=== PATIENT | male | born 1940 | race Caucasian/White ===

== ENCOUNTER 2017-06-24 09:17 | Emergency (ER) | payer MEDICARE ==
[~2017-06-24] VITALS: Ht 185.4 cm; Wt 125.0 kg
[~2017-06-24 09:17] MED LIST: ADULT ASPIRIN L81 MG PO; ALLOPURINOL300 MG OR; ALLOPURINOL300 MG PO; AMITIZA24 MC1 PO; ANAPROX275 MG OR; ASA LO-DOSE81 MG PO; ASPIRIN81 MG PO; ATORVASTATIN CA40 MG PO; AUGMENTIN875TAB PO; AVANDIA4 MG OR; AVODART0.5 MG OR; BOOSTRIX IM; BUMETANIDE1 MG PO; BUMETANIDE2 MG PO; BUMEX1 MG PO; BUMEX2 MG OR; CARDIZEM CD240 MG OR; CEPHALEXIN500 MG PO; CLONAZEP ODT0.5 MG OR; CLOPIDOGREL75 MG PO; COLCHICINE0.6 MG OR; COMPAZINE10 MG OR; CRESTOR10 MG; CRESTOR10 MG PO; CRESTOR20 MG PO; DESYREL50 MG OR; DESYREL50 MG PO; DIABETA5 MG PO; DIFLUCAN150 MG PO; DIPYRIDAMOLE50 MG PO; ECONAZOLE1 % EX; FISH OIL1000 MG PO; FLUCONAZOLE100 MG PO; FLUTICASONE50 MCG; FLUZONE SPLT1 M1 IM; GLIPIZIDE ER10 M1 PO; GLIPIZIDE10 M2 OR; GLIPIZIDE10 M2 PO; GLIPIZIDE10 MG PO; JANUVIA50 MG PO; K-DUR/KLOR-CON10 MEQ PO; KEFLEX250 MG PO; LASIX40 MG PO; LASIX80 MG OR; LISINOPRIL10 MG OR; LISINOPRIL10 MG PO; LISINOPRIL20 MG PO; LISINOPRIL5 MG PO; LOPID600 MG OR; LORTAB 10 OR; LUPRON2 WEE1 IJ; MELOXICAM15 MG PO; METFORMIN1000 MG OR; METFORMIN1000 MG PO; METFORMIN500 MG PO; MICRO-K10 MEQ PO; MOBIC7.5 MG PO; MUCINEX600 MG OR; MULTIVITAMIN PO; NABUMETONE750 MG PO; NITROGLYCER0.4 MG SL; OMEPRAZOLE20 MG OR; ONGLYZA2.5 MG PO; PERCOCET 5/321 COMBO PO; PERSANTINE50 MG OR; PLAVIX75 MG OR; POT CHLORIDE10 MEQ OR; POT CHLORIDE20 ME2 OR; PREVACID30 M2 PO; SIMVASTATIN40 MG OR; SIMVASTATIN80 MG PO; SOMA350 MG OR; SOMA350 MG PO; TENORMIN OR; TRAMADOL HCL50 MG PO; TRAZODONE50 MG PO; TYLENOL # 31 TA1 PO; VENLAFAXINE75 M2 PO; VITAMIN B-121000 MCG OR; VITAMIN D-31000 UNIT PO; VITAMIN E1000 UNIT PO; ZOSTAVAX SC; [UNRECOGNIZED DRUG - OTHER] PO; [UNRECOGNIZED DRUG - OTHER] PO
[2017-06-24 09:55] VITALS: BP 131/79
== END 2017-06-24 09:56 | disposition home or self-care (01) ==
LOC: ED 09:17
DX: M72.2 Plantar fascial fibromatosis (principal); I50.9 Heart failure, unspecified; E11.9 Type 2 diabetes mellitus without complications; Z85.46 Personal history of malignant neoplasm of prostate; Z95.5 Presence of coronary angioplasty implant and graft

== ENCOUNTER 2018-02-25 21:31 | Observation (INO) | payer MEDICARE ==
[~2018-02-25] VITALS: Ht 185.4 cm; Wt 119.3 kg
[2018-02-25 22:28] LABS: HEMATOCRIT 35.8 % (39.0-50.0); HEMOGLOBIN 12.7 g/dl (14.0-18.0); IMMATURE GRANULOCYTES 0.4 % (0.0-5.0); MEAN CELL VOLUME 92.7 fL CALC (80.0-100.0); MEAN CORPUSCULAR HGB 32.9 pG CALC (26.0-32.0); MEAN CORPUSCULAR HGB CONC 35.5 g/L CALC (32.0-36.0); NEUT# 9.37 thou/uL (1.82-7.42); RED BLOOD COUNT 3.86 mill/uL (4.70-6.10); RED CELL DISTRI WIDTH 12.7 % (11.5-15.5)
[2018-02-25] MEDS ORDERED: TAMSULOSIN HCL0.4 MG PO (22:38)
[2018-02-25] MEDS ORDERED: ALLOPURINOL100 MG PO (22:38)
[2018-02-25] MEDS ORDERED: LISINOPRIL10 MG PO (22:38)
[2018-02-25] MEDS ORDERED: LIPITOR80 M1 PO (22:39)
[2018-02-25 22:44] LABS: ALBUMIN 3.8 g/dL (3.2-5.0); BILIRUBIN, TOTAL 0.5 mg/dL (0.0-1.4); CREATININE 1.4 mg/dL (0.7-1.3); POTASSIUM 4.2 mmol/l (3.5-5.1); TOTAL PROTEIN 6.5 g/dL (6.3-8.2)
[2018-02-25 22:51] LABS: INTERNATIONAL NORMALIZED RATIO 1.1 RATIO (0.7-1.3); PROTHROMBIN TIME 11.9 SECONDS (9.0-12.5)
[2018-02-25 23:41] LABS: URINE BILIRUBIN - DIPSTICK NEGATIVE (NEGATIVE); URINE BLOOD DIPSTICK NEGATIVE (NEGATIVE); URINE COLOR YELLOW; URINE GLUCOSE - DIPSTICK NEGATIVE (NEGATIVE); URINE KETONE TRACE mg/dL (NEGATIVE); URINE LEUK ESTERASE NEGATIVE (NEGATIVE); URINE NITRITE - DIPSTICK NEGATIVE (Negative); URINE PH 5.5 (4.5-8.0); URINE PROTEIN - DIPSTICK NEGATIVE (NEG-TRACE); URINE SPECIFIC GRAVITY 1.025; URINE UROBILINOGEN - DIPSTICK 0.2 E.U./dL (0.2)
[2018-02-25 23:42] LABS: URINE CLARITY CLEAR
[2018-02-26] VITALS (8 sets, daily range): BP systolic 93–132; BP diastolic 41–75
[2018-02-27 00:25] VITALS: BP 104/63
[2018-02-27 05:00] VITALS: BP 113/67
[2018-02-27 07:56] VITALS: BP 114/72
[2018-02-27 10:14] LABS: ANION GAP 13 (6-22 (CALC)); BUN 16 mg/dL (8-23); BUN/CREATININE RATIO 15 (12-20 (CALC)); CARBON DIOXIDE 23 mmol/l (22-30); CHLORIDE 106 mmol/l (95-108); CREATININE 1.1 mg/dL (0.7-1.3); GFR > 60 ML/MIN (>=60 (CALC)); GFR FOR AFR.AMER. > 60 ML/MIN (>=60 (CALC)); POTASSIUM 4.4 mmol/l (3.5-5.1); SODIUM 138 mmol/l (137-146)
[2018-02-27] MEDS ORDERED: BUMETANIDE2 MG IN (11:35)
[2018-02-27 12:30] VITALS: BP 102/67
[2018-02-28] MEDS ORDERED: TRAZODONE100 MG PO (16:10)
== END 2018-02-27 13:35 | disposition home health service (06) ==
LOC: ED 21:31 → ED-I 02-26 03:10 → ED 02-26 03:39 → MS2 02-26 03:40
PROVIDERS: Emergency Medicine; ADMIT Internal Medicine; ATTEND Internal Medicine
DX: R26.89 Other abnormalities of gait and mobility (principal); N17.9 Acute kidney failure, unspecified; S00.81XA Abrasion of other part of head, initial encounter; E86.0 Dehydration; I10 Essential (primary) hypertension; E11.9 Type 2 diabetes mellitus without complications; I25.10 Atherosclerotic heart disease of native coronary artery without angina pectoris; M25.552 Pain in left hip; W01.0XXA Fall on same level from slipping, tripping and stumbling without subsequent striking against object, initial encounter; Y92.239 Unspecified place in hospital as the place of occurrence of the external cause; Y99.2 Volunteer activity; Z95.5 Presence of coronary angioplasty implant and graft; Z85.46 Personal history of malignant neoplasm of prostate; Z92.21 Personal history of antineoplastic chemotherapy; Z87.891 Personal history of nicotine dependence; Z79.84 Long term (current) use of oral hypoglycemic drugs

== ENCOUNTER 2018-02-28 14:54 | Emergency (ER) | payer MEDICARE ==
[~2018-02-28] VITALS: Ht 185.4 cm; Wt 135.0 kg
[~2018-02-28 14:54] MED LIST changes: +ALLOPURINOL100 MG PO; +BUMETANIDE2 MG IN; +LIPITOR80 M1 PO; +TAMSULOSIN HCL0.4 MG PO
[2018-02-28 15:31] LABS: HEMATOCRIT 34.3 % (39.0-50.0); HEMOGLOBIN 11.9 g/dl (14.0-18.0); IMMATURE GRANULOCYTES 0.3 % (0.0-5.0); MEAN CELL VOLUME 94.2 fL CALC (80.0-100.0); MEAN CORPUSCULAR HGB 32.7 pG CALC (26.0-32.0); MEAN CORPUSCULAR HGB CONC 34.7 g/L CALC (32.0-36.0); NEUT# 4.04 thou/uL (1.82-7.42); RED BLOOD COUNT 3.64 mill/uL (4.70-6.10); RED CELL DISTRI WIDTH 12.6 % (11.5-15.5)
[2018-02-28 15:48] LABS: ANION GAP 12 (6-22 (CALC)); BUN 16 mg/dL (8-23); BUN/CREATININE RATIO 15 (12-20 (CALC)); CARBON DIOXIDE 29 mmol/l (22-30); CHLORIDE 102 mmol/l (95-108); CREATININE 1.1 mg/dL (0.7-1.3); GFR > 60 ML/MIN (>=60 (CALC)); GFR FOR AFR.AMER. > 60 ML/MIN (>=60 (CALC)); POTASSIUM 4.1 mmol/l (3.5-5.1); SODIUM 139 mmol/l (137-146)
[2018-02-28] MEDS ORDERED: TRAZODONE100 MG PO (16:10)
[2018-02-28 17:47] VITALS: BP 119/61
== END 2018-02-28 17:33 | disposition short-term general hospital (02) ==
LOC: ED 14:54
PROVIDERS: Family Medicine
DX: I63.9 Cerebral infarction, unspecified (principal); R47.81 Slurred speech; S00.12XA Contusion of left eyelid and periocular area, initial encounter; M25.552 Pain in left hip; E11.9 Type 2 diabetes mellitus without complications; I10 Essential (primary) hypertension; I25.10 Atherosclerotic heart disease of native coronary artery without angina pectoris; E78.5 Hyperlipidemia, unspecified; I73.9 Peripheral vascular disease, unspecified; W19.XXXA Unspecified fall, initial encounter; Y92.149 Unspecified place in prison as the place of occurrence of the external cause; Y99.0 Civilian activity done for income or pay; Z85.46 Personal history of malignant neoplasm of prostate

== ENCOUNTER 2019-05-23 10:53 | Inpatient (IN) | payer MEDICARE ==
[~2019-05-23] VITALS: Ht 185.4 cm; Wt 127.5 kg
[~2019-05-23 10:53] MED LIST changes: +TRAZODONE100 MG PO; -VITAMIN E1000 UNIT PO; +VITAMIN E400 UNIT PO; +XARELTO10 MG PO; +XARELTO20 MG PO
[2019-05-23] MEDS ORDERED: ALOGLIPTIN25 MG PO (11:12)
[2019-05-23] MEDS ORDERED: ATENOLOL25 MG PO (11:13)
[2019-05-23] MEDS ORDERED: BUMEX1 M1 PO (11:14)
[2019-05-23] MEDS ORDERED: LORATADINE10 M3 PO (11:16)
[2019-05-23] MEDS ORDERED: LOSARTAN POTASS25 MG PO (11:16)
[2019-05-23] MEDS ORDERED: COUMADIN5 MG PO (11:17)
[2019-05-23] MEDS ORDERED: TRAZODONE50 MG PO (11:22)
[2019-05-23] MEDS ORDERED: STOOL SOFTENER100 MG PO (11:29)
[2019-05-23] MEDS ORDERED: GABAPENTIN300 M2 PO (11:29)
[2019-05-23 11:30] LABS: HEMATOCRIT 37.2 % (39.0-50.0); HEMOGLOBIN 12.7 g/dl (14.0-18.0); IMMATURE GRANULOCYTES 0.3 % (0.0-5.0); MEAN CELL VOLUME 94.4 fL CALC (80.0-100.0); MEAN CORPUSCULAR HGB 32.2 pG CALC (26.0-32.0); MEAN CORPUSCULAR HGB CONC 34.1 g/L CALC (32.0-36.0); NEUT# 8.81 thou/uL (1.82-7.42); RED BLOOD COUNT 3.94 mill/uL (4.70-6.10); RED CELL DISTRI WIDTH 12.6 % (11.5-15.5)
[2019-05-23 11:47] LABS: ALBUMIN 3.2 g/dL (3.2-5.0); ALKALINE PHOSPHATASE 68 u/l (38-126); ANION GAP 11 (6-22 (CALC)); BUN 27 mg/dL (8-23); BUN/CREATININE RATIO 17 (12-20 (CALC)); CARBON DIOXIDE 22 mmol/l (22-30); CHLORIDE 110 mmol/l (95-108); CREATININE 1.6 mg/dL (0.7-1.3); GFR 42 ML/MIN (>=60 (CALC)); GFR FOR AFR.AMER. 51 ML/MIN (>=60 (CALC)); POTASSIUM 4.4 mmol/l (3.5-5.1); SGOT/AST 18 u/l (19-48); SODIUM 139 mmol/l (137-146); TOTAL PROTEIN 6.1 g/dL (6.3-8.2)
[2019-05-23 11:48] LABS: BILIRUBIN, TOTAL 0.3 mg/dL (0.0-1.4)
[2019-05-23 11:51] LABS: PROTHROMBIN TIME 17.7 SECONDS (9.0-12.5)
[2019-05-23 11:52] LABS: INTERNATIONAL NORMALIZED RATIO 1.7 RATIO (0.7-1.3)
[2019-05-23 12:18] LABS: TSH, 3RD GENERATION 1.33 uIU/mL (0.47 - 4.68)
[2019-05-23 13:50] LABS: URINE BILIRUBIN - DIPSTICK NEGATIVE (NEGATIVE); URINE BLOOD DIPSTICK NEGATIVE (NEGATIVE); URINE COLOR YELLOW; URINE GLUCOSE - DIPSTICK NEGATIVE (NEGATIVE); URINE KETONE NEGATIVE (NEGATIVE); URINE LEUK ESTERASE NEGATIVE (NEGATIVE); URINE NITRITE - DIPSTICK NEGATIVE (Negative); URINE PH 5.5 (4.5-8.0); URINE PROTEIN - DIPSTICK NEGATIVE (NEG-TRACE); URINE SPECIFIC GRAVITY 1.025; URINE UROBILINOGEN - DIPSTICK 0.2 E.U./dL (0.2)
[2019-05-23] MEDS ORDERED: WARFARIN7.5 MG PO (16:16)
[2019-05-23 16:18] VITALS: BP 117/68
[2019-05-23 19:11] VITALS: BP 102/65
[2019-05-23 23:59] VITALS: BP 107/54
[2019-05-24] VITALS (10 sets, daily range): BP systolic 87–124; BP diastolic 51–73
[2019-05-24 09:09] LABS: PROTHROMBIN TIME 20.4 SECONDS (9.0-12.5)
[2019-05-24 13:32] LABS: HEMATOCRIT 35.4 % (39.0-50.0); HEMOGLOBIN 11.6 g/dl (14.0-18.0); IMMATURE GRANULOCYTES 0.2 % (0.0-5.0); MEAN CELL VOLUME 96.5 fL CALC (80.0-100.0); MEAN CORPUSCULAR HGB 31.6 pG CALC (26.0-32.0); MEAN CORPUSCULAR HGB CONC 32.8 g/L CALC (32.0-36.0); NEUT# 3.71 thou/uL (1.82-7.42); RED BLOOD COUNT 3.67 mill/uL (4.70-6.10); RED CELL DISTRI WIDTH 12.7 % (11.5-15.5)
[2019-05-24 13:34] LABS: ANION GAP 9 (6-22 (CALC)); BUN 21 mg/dL (8-23); BUN/CREATININE RATIO 18 (12-20 (CALC)); CARBON DIOXIDE 22 mmol/l (22-30); CHLORIDE 111 mmol/l (95-108); CREATININE 1.2 mg/dL (0.7-1.3); GFR 59 ML/MIN (>=60 (CALC)); GFR FOR AFR.AMER. > 60 ML/MIN (>=60 (CALC)); MAGNESIUM 1.9 mg/dL (1.6-2.3); POTASSIUM 4.1 mmol/l (3.5-5.1); SODIUM 137 mmol/l (137-146)
[2019-05-25] VITALS (7 sets, daily range): BP systolic 106–121; BP diastolic 49–70
[2019-05-25 04:53] LABS: HEMATOCRIT 33.4 % (39.0-50.0); HEMOGLOBIN 11.2 g/dl (14.0-18.0); IMMATURE GRANULOCYTES 0.2 % (0.0-5.0); MEAN CELL VOLUME 95.2 fL CALC (80.0-100.0); MEAN CORPUSCULAR HGB 31.9 pG CALC (26.0-32.0); MEAN CORPUSCULAR HGB CONC 33.5 g/L CALC (32.0-36.0); NEUT# 3.53 thou/uL (1.82-7.42); RED BLOOD COUNT 3.51 mill/uL (4.70-6.10); RED CELL DISTRI WIDTH 12.5 % (11.5-15.5)
[2019-05-25 05:34] LABS: INTERNATIONAL NORMALIZED RATIO 1.9 RATIO (0.7-1.3)
[2019-05-25 05:37] LABS: ANION GAP 8 (6-22 (CALC)); BUN 21 mg/dL (8-23); BUN/CREATININE RATIO 17 (12-20 (CALC)); CARBON DIOXIDE 23 mmol/l (22-30); CHLORIDE 111 mmol/l (95-108); CREATININE 1.2 mg/dL (0.7-1.3); GFR 59 ML/MIN (>=60 (CALC)); GFR FOR AFR.AMER. > 60 ML/MIN (>=60 (CALC)); MAGNESIUM 1.8 mg/dL (1.6-2.3); POTASSIUM 3.8 mmol/l (3.5-5.1); SODIUM 138 mmol/l (137-146)
[2019-05-26] VITALS (9 sets, daily range): BP systolic 110–134; BP diastolic 57–69
[2019-05-26 05:16] LABS: HEMATOCRIT 35.5 % (39.0-50.0); HEMOGLOBIN 11.9 g/dl (14.0-18.0); IMMATURE GRANULOCYTES 0.2 % (0.0-5.0); MEAN CELL VOLUME 94.7 fL CALC (80.0-100.0); MEAN CORPUSCULAR HGB 31.7 pG CALC (26.0-32.0); MEAN CORPUSCULAR HGB CONC 33.5 g/L CALC (32.0-36.0); NEUT# 3.22 thou/uL (1.82-7.42); RED BLOOD COUNT 3.75 mill/uL (4.70-6.10); RED CELL DISTRI WIDTH 12.3 % (11.5-15.5)
[2019-05-26 05:37] LABS: INTERNATIONAL NORMALIZED RATIO 1.5 RATIO (0.7-1.3)
[2019-05-26 05:47] LABS: ANION GAP 10 (6-22 (CALC)); BUN 17 mg/dL (8-23); BUN/CREATININE RATIO 15 (12-20 (CALC)); CARBON DIOXIDE 23 mmol/l (22-30); CHLORIDE 111 mmol/l (95-108); CREATININE 1.2 mg/dL (0.7-1.3); GFR 59 ML/MIN (>=60 (CALC)); GFR FOR AFR.AMER. > 60 ML/MIN (>=60 (CALC)); MAGNESIUM 1.8 mg/dL (1.6-2.3); POTASSIUM 4.2 mmol/l (3.5-5.1); SODIUM 140 mmol/l (137-146)
== END 2019-05-26 16:16 | disposition home health service (06) | DRG 312 ==
LOC: ED 10:53 → ED-I 12:06 → ED 12:06 → ED-I 13:47 → ED 14:04 → MS2 14:05
PROVIDERS: Family Medicine; Nurse Practitioner Family; ADMIT Internal Medicine; ATTEND Internal Medicine
DX: I95.1 Orthostatic hypotension (principal); I13.0 Hypertensive heart and chronic kidney disease with heart failure and stage 1 through stage 4 chronic kidney disease, or unspecified chronic kidney disease; N17.9 Acute kidney failure, unspecified; I48.20 Chronic atrial fibrillation, unspecified; R62.7 Adult failure to thrive; Z68.36 Body mass index [BMI] 36.0-36.9, adult; E86.0 Dehydration; E11.22 Type 2 diabetes mellitus with diabetic chronic kidney disease; N18.2 Chronic kidney disease, stage 2 (mild); I50.9 Heart failure, unspecified; E11.51 Type 2 diabetes mellitus with diabetic peripheral angiopathy without gangrene; I25.10 Atherosclerotic heart disease of native coronary artery without angina pectoris; E78.5 Hyperlipidemia, unspecified; G47.33 Obstructive sleep apnea (adult) (pediatric); Z91.19 Patient's noncompliance with other medical treatment and regimen; J61 Pneumoconiosis due to asbestos and other mineral fibers; M10.9 Gout, unspecified; N40.0 Benign prostatic hyperplasia without lower urinary tract symptoms; Z91.81 History of falling; Z85.46 Personal history of malignant neoplasm of prostate; Z79.01 Long term (current) use of anticoagulants; Z95.5 Presence of coronary angioplasty implant and graft; Z87.891 Personal history of nicotine dependence; Z63.8 Other specified problems related to primary support group
CPT/HCPCS: G0378

== ENCOUNTER 2019-11-27 16:14 | Inpatient (IN) | payer MEDICARE ==
[~2019-11-27 16:14] MED LIST changes: +ALOGLIPTIN25 MG PO; +ATENOLOL25 MG PO; +BUMEX1 M1 PO; +COUMADIN5 MG PO; +GABAPENTIN300 M2 PO; +LORATADINE10 M3 PO; +LOSARTAN POTASS25 MG PO; +STOOL SOFTENER100 MG PO; +WARFARIN7.5 MG PO
--- NOTE | 2019-11-27 16:50 | NUR ---
PT ARRIVED TO MED/SURG ROOM 262 IN STABLE CONDITION VIA WHEELCHAIR ACCOMPANIED BY REGISTRATION;PT AMBULATED WITH A STEADY GAIT TO STANDING SCALE AND BEDSIDE,WT AND VS OBTAINED BY JANIE LOPEZ;PT A&O X3,ORIENTED TO ROOM AND CALL LIGHT SYSTEM;PT REPORTS INCREASED "SWELLING" FOR THE PAST FEW WEEKS AND SENT TO [facility] [place] FROM PCP DIRECT ADMIT;PT DENIES ANY CURRENT PAIN OR DISCOMFORTS,PAIN SCALE AND REPORTING EDUCATED;RESPIRATIONS EVEN AND UNLABORED ON RA,DIMINISHED LUNG SOUNDS;PT DENIES COUGH;ABDOMEN DISTENDED/SOFT ON PALPATION AND ACTIVE IN ALL 4 QUADRANTS,LAST BM 11/27/19;STRONG PEDAL PULSES WITH +1 BLE EDEMA NOTED,PT ENCOURAGED TO ELEVATE BLE;SKIN INTACT;TELE MONITORING IN PLACE;FALL AND ALLERGY BAND APPLIED;ACCUCHECK OBTAINED RESULTING IN 181;#22G STARTED TO RFA ON 1ST ATTEMPT BY THIS WRITTER AND PT TOLERATED WELL;PT DENIES ANY ADDITIONAL NEEDS AT THIS TIME;ENCOURAGED TO CALL FOR ASSISTANCE IF NEEDED;FALL PRECAUTIONS IN PLACE WITH BED IN THE LOWEST POSITION AND CALL LIGHT IN REACH;WILL CONTINUE TO MONITOR
[2019-11-27 17:08] VITALS: BP 109/62
--- NOTE | 2019-11-27 17:34 | NUR ---
XRAY AT BEDSIDE
--- NOTE | 2019-11-27 17:46 | NUR ---
RT AT BEDSIDE OBTAINING EKG.
[2019-11-27 17:55] LABS: HEMATOCRIT 36.2 % (39.0-50.0); HEMOGLOBIN 12.3 g/dl (14.0-18.0); IMMATURE GRANULOCYTES 0.3 % (0.0-5.0); MEAN CELL VOLUME 92.8 fL CALC (80.0-100.0); MEAN CORPUSCULAR HGB 31.5 pG CALC (26.0-32.0); NEUT# 5.01 thou/uL (1.82-7.42); RED BLOOD COUNT 3.9 mill/uL (4.70-6.10)
[2019-11-27 18:19] LABS: INTERNATIONAL NORMALIZED RATIO 2.5 RATIO (0.7-1.3); PROTHROMBIN TIME 24.7 SECONDS (9.0-12.5)
[2019-11-27 18:22] LABS: ALBUMIN 3.3 g/dL (3.2-5.0); BILIRUBIN, TOTAL 0.3 mg/dL (0.0-1.4); CREATININE 1.7 mg/dL (0.7-1.3); MAGNESIUM 1.9 mg/dL (1.6-2.3); POTASSIUM 4.5 mmol/l (3.5-5.1); TOTAL PROTEIN 6.1 g/dL (6.3-8.2)
[2019-11-27 18:50] VITALS: BP 116/67
--- NOTE | 2019-11-27 19:30 | NUR ---
PT RESTING IN BED, NO SIGNS OF DISTRESS NOTED, RESP EVEN AND UNLABORED. PT ALERT AND ORIENTED X3. DISCUSSED POC, PT VOICES NO NEEDS OR COMPLAINTS AT THIS TIME. ASSESSMENT COMPLETED, CALL LIGHT IN REACH,CONTINUE TO MONITOR.
[2019-11-27 20:29] LABS: URINE BILIRUBIN - DIPSTICK NEGATIVE (NEGATIVE); URINE BLOOD DIPSTICK NEGATIVE (NEGATIVE); URINE CLARITY CLEAR; URINE COLOR YELLOW; URINE GLUCOSE - DIPSTICK NEGATIVE (NEGATIVE); URINE KETONE NEGATIVE (NEGATIVE); URINE LEUK ESTERASE NEGATIVE (Negative); URINE NITRITE - DIPSTICK NEGATIVE (Negative); URINE PH 5.5 (4.5-8.0); URINE PROTEIN - DIPSTICK NEGATIVE (NEG-TRACE); URINE SPECIFIC GRAVITY 1.025; URINE UROBILINOGEN - DIPSTICK 0.2 E.U./dL (0.2)
--- NOTE | 2019-11-27 21:16 | NUR ---
PT RESTING IN BED, NO SIGNS OF DISTRESS NOTED, RESP EVEN AND UNLABORED. PT MEDICATED PER SEP. PT GIVEN SNACK, CALL LIGHT IN REACH,CONTINUE TO MONITOR.
[2019-11-27 23:35] VITALS: BP 100/51
--- NOTE | 2019-11-28 | NUR ---
PT RESTING IN BED, NO SIGNS OF DISTRESS NOTED, RESP EVEN AND UNLABORED. ACCUCHECK OBTAINED PER REQUEST. 198 AT THIS TIME.CALL LIGHT IN REACH,CONTINUE TO MONITOR.
--- NOTE | 2019-11-28 04:01 | NUR ---
PT RESTING IN BED, NO SIGNS OF DISTRESS NOTED, RESP EVEN AND UNLABORED. CALL LIGHT IN REACH,CONTINUE TO MONITOR.
[2019-11-28 05:51] LABS: ALBUMIN 3.1 g/dL (3.2-5.0); BILIRUBIN, TOTAL 0.4 mg/dL (0.0-1.4); CREATININE 1.7 mg/dL (0.7-1.3); POTASSIUM 4.4 mmol/l (3.5-5.1); TOTAL PROTEIN 5.8 g/dL (6.3-8.2)
[2019-11-28 07:25] LABS: INTERNATIONAL NORMALIZED RATIO 2.6 RATIO (0.7-1.3); PROTHROMBIN TIME 26.1 SECONDS (9.0-12.5)
[2019-11-28 08:10] VITALS: BP 120/58
--- NOTE | 2019-11-28 08:10 | NUR ---
ASSESSMENT IS COMPLETED: IV SITE IS FREE FROM REDNESS OR EDEMA. HR IS REG,PULSES ARE STRONG X4, ABD IS SOFT WITH ACTIVE BS, BREATH SOUNDS ARE CLEAR BILATERALLY. CONTINUE TO OSBERVE AND MONITOR.
[2019-11-28 10:55] VITALS: BP 92/52
--- NOTE | 2019-11-28 11:07 | NUR ---
family sent papers for pt. (confidential)
--- NOTE | 2019-11-28 12:15 | NUR ---
PT IS RELAXING IN BED WITH NO DISTRESS NOTED. IV SITE IS FREE FROM REDNESS OR EDEMA.
--- NOTE | 2019-11-28 13:42 | NUR ---
SPOKE WITH SPOUSE RE: PT. INQUIRED HOW HE WAS DOING TODAY,
[2019-11-28 15:30] VITALS: BP 110/64
--- NOTE | 2019-11-28 16:15 | NUR ---
PT IS RELAXING IN BED WITH NO DISTRESS NOTED. CONTINUE TO OSBERVE AND MONITOR.
[2019-11-28 18:30] VITALS: BP 107/65
--- NOTE | 2019-11-28 20:50 | NUR ---
PT MEDICATED ORDERS PROVIDE. ASSESSMENT COMPLETED AT THIS TIME. 2+EDEMA BLE. DENIES ANY OTHER NEEDS AT THIS TIME. CALL LIGHT AT BEDSIDE.
[2019-11-28 23:55] VITALS: BP 107/66
--- NOTE | 2019-11-29 01:40 | NUR ---
PT SLEEPING AT THIS TIME, NO S/O DISTRESS NOTED. CALL LIGHT AT SIDE.
[2019-11-29 03:35] VITALS: BP 105/60
--- NOTE | 2019-11-29 03:57 | NUR ---
pt sleeping, no s/o distress at this time.
--- NOTE | 2019-11-29 05:12 | NUR ---
PT MEDICATED W/BUMEX ORDERS PROVIDE. PT DENIES ANY NEEDS. EDEMA TO BLE 2+PITTING EDEMA.
--- NOTE | 2019-11-29 05:30 | NUR ---
REPORT RECEIVED FROM JASPER. CARE ASSUMED.
[2019-11-29 06:20] VITALS: BP 106/72
--- NOTE | 2019-11-29 06:20 | NUR ---
PT RESTING IN BED AWAKE. PT IS ALERT AND ORIENTED X3. SHIFT ASSESSMENT COMPLETED AT THIS TIME. IV PATENT X1. CALL LIGHT IN REACH. WILL CONTINUE TO MONITOR.
[2019-11-29 06:25] LABS: PROTHROMBIN TIME 20.7 SECONDS (9.0-12.5)
[2019-11-29 06:40] LABS: CREATININE 1.6 mg/dL (0.7-1.3); POTASSIUM 4.3 mmol/l (3.5-5.1)
--- NOTE | 2019-11-29 10:00 | NUR ---
DR JEFFERSON AT BEDSIDE
[2019-11-29 10:36] VITALS: BP 105/68
--- NOTE | 2019-11-29 10:45 | NUR ---
IV site discontinued, cath intact. No edema , no redness, voices no discomfort.
--- NOTE | 2019-11-29 11:30 | NUR ---
DISCHARGE INSTRUCTIONS REVIEWED WITH PATIENT. PATIENT VERBALIZED UNDERSTANDING.
--- NOTE | 2019-11-29 11:35 | NUR ---
Discharge instructions given. Patient verbalizes understanding of same. Discharged in stable condition via Wheelchair to Home with family. All belongings sent with pt.
== END 2019-11-29 11:36 | DRG 291 ==
LOC: MS2 16:14
PROVIDERS: ADMIT Internal Medicine; ATTEND Internal Medicine
DX: I13.0 Hypertensive heart and chronic kidney disease with heart failure and stage 1 through stage 4 chronic kidney disease, or unspecified chronic kidney disease (principal); I50.33 Acute on chronic diastolic (congestive) heart failure; I48.20 Chronic atrial fibrillation, unspecified; E11.22 Type 2 diabetes mellitus with diabetic chronic kidney disease; N18.9 Chronic kidney disease, unspecified; I25.10 Atherosclerotic heart disease of native coronary artery without angina pectoris; E11.51 Type 2 diabetes mellitus with diabetic peripheral angiopathy without gangrene; G47.33 Obstructive sleep apnea (adult) (pediatric); M10.9 Gout, unspecified; Z79.01 Long term (current) use of anticoagulants; Z95.5 Presence of coronary angioplasty implant and graft; Z87.891 Personal history of nicotine dependence; Z85.46 Personal history of malignant neoplasm of prostate; Z79.02 Long term (current) use of antithrombotics/antiplatelets; Z79.84 Long term (current) use of oral hypoglycemic drugs; Z20.828 Contact with and (suspected) exposure to other viral communicable diseases

== ENCOUNTER 2019-12-02 08:31 | Observation (INO) | payer MEDICARE ==
[~2019-12-02] VITALS: Ht 185.4 cm; Wt 134.0 kg
[2019-12-02 09:20] LABS: HEMATOCRIT 36.6 % (39.0-50.0); HEMOGLOBIN 12.3 g/dl (14.0-18.0); IMMATURE GRANULOCYTES 0.4 % (0.0-5.0); MEAN CORPUSCULAR HGB 30.9 pG CALC (26.0-32.0); MEAN CORPUSCULAR HGB CONC 33.6 g/dL CAL (32.0-36.0); NEUT# 5.64 thou/uL (1.82-7.42); RED BLOOD COUNT 3.98 mill/uL (4.70-6.10); RED CELL DISTRI WIDTH 12.7 % (11.5-15.5)
[2019-12-02 09:37] LABS: INTERNATIONAL NORMALIZED RATIO 1.9 RATIO (0.7-1.3); PROTHROMBIN TIME 19.7 SECONDS (9.0-12.5)
[2019-12-02 09:47] LABS: ALBUMIN 3.5 g/dL (3.2-5.0); ALKALINE PHOSPHATASE 62 u/l (38-126); ANION GAP 11 (6-22 (CALC)); BILIRUBIN, TOTAL 0.5 mg/dL (0.0-1.4); BUN 28 mg/dL (8-23); BUN/CREATININE RATIO 19 (12-20 (CALC)); CARBON DIOXIDE 26 mmol/l (22-30); CHLORIDE 102 mmol/l (95-108); CREATININE 1.5 mg/dL (0.7-1.3); GFR 45 ML/MIN (>=60 (CALC)); GFR FOR AFR.AMER. 55 ML/MIN (>=60 (CALC)); POTASSIUM 4.7 mmol/l (3.5-5.1); SGOT/AST 16 u/l (19-48); SODIUM 134 mmol/l (137-146); TOTAL PROTEIN 6.4 g/dL (6.3-8.2)
[2019-12-02 14:00] VITALS: BP 120/70
[2019-12-02 15:39] VITALS: BP 104/55
[2019-12-02 19:02] VITALS: BP 115/69
[2019-12-02 23:43] VITALS: BP 98/39
[2019-12-03] VITALS (7 sets, daily range): BP systolic 92–120; BP diastolic 53–64
[2019-12-03 05:10] LABS: HEMATOCRIT 36.2 % (39.0-50.0); HEMOGLOBIN 12.4 g/dl (14.0-18.0); IMMATURE GRANULOCYTES 0.2 % (0.0-5.0); MEAN CELL VOLUME 91.6 fL CALC (80.0-100.0); MEAN CORPUSCULAR HGB 31.4 pG CALC (26.0-32.0); MEAN CORPUSCULAR HGB CONC 34.3 g/dL CAL (32.0-36.0); NEUT# 4.1 thou/uL (1.82-7.42); RED BLOOD COUNT 3.95 mill/uL (4.70-6.10); RED CELL DISTRI WIDTH 12.9 % (11.5-15.5)
[2019-12-03 05:29] LABS: PROTHROMBIN TIME 20.3 SECONDS (9.0-12.5)
[2019-12-03 05:39] LABS: ALBUMIN 3.3 g/dL (3.2-5.0); BILIRUBIN, TOTAL 0.5 mg/dL (0.0-1.4); CREATININE 1.5 mg/dL (0.7-1.3); POTASSIUM 4.2 mmol/l (3.5-5.1); TOTAL PROTEIN 6.1 g/dL (6.3-8.2)
[2019-12-04 04:01] VITALS: BP 90/55
[2019-12-04 05:57] LABS: INTERNATIONAL NORMALIZED RATIO 1.7 RATIO (0.7-1.3); PROTHROMBIN TIME 17.6 SECONDS (9.0-12.5)
[2019-12-04 06:03] LABS: CREATININE 1.4 mg/dL (0.7-1.3)
[2019-12-04 08:10] VITALS: BP 122/71
[2019-12-04 11:19] VITALS: BP 101/66
[2019-12-04] MEDS ORDERED: LORTAB 7.57.5 MG PO (13:14)
== END 2019-12-04 15:00 ==
LOC: ED 08:31 → ED-I 12:00 → ED 12:16 → MS2 12:17 → ED-I 12:17 → MS2 12:48
PROVIDERS: Family Medicine; Nurse Practitioner Family; ADMIT Internal Medicine; ATTEND Internal Medicine
DX: I13.0 Hypertensive heart and chronic kidney disease with heart failure and stage 1 through stage 4 chronic kidney disease, or unspecified chronic kidney disease (principal); I50.9 Heart failure, unspecified; E11.22 Type 2 diabetes mellitus with diabetic chronic kidney disease; N18.3 Chronic kidney disease, stage 3 (moderate); E11.51 Type 2 diabetes mellitus with diabetic peripheral angiopathy without gangrene; I25.119 Atherosclerotic heart disease of native coronary artery with unspecified angina pectoris; J44.9 Chronic obstructive pulmonary disease, unspecified; I48.19 Other persistent atrial fibrillation; E78.5 Hyperlipidemia, unspecified; G47.33 Obstructive sleep apnea (adult) (pediatric); Z79.01 Long term (current) use of anticoagulants; Z95.5 Presence of coronary angioplasty implant and graft; Z20.828 Contact with and (suspected) exposure to other viral communicable diseases
CPT/HCPCS: G0378; Q9967

== ENCOUNTER 2020-03-14 16:04 | Inpatient (IN) | payer MEDICARE ==
[2020-03-10 20:15] VITALS: BP 104/59
[2020-03-14] VITALS (16 sets, daily range): BP systolic 84–173; BP diastolic 51–73
[~2020-03-14] VITALS: Ht 185.4 cm; Wt 141.8 kg
[~2020-03-14 16:04] MED LIST changes: +LORTAB 7.57.5 MG PO
--- NOTE | 2020-03-14 16:04 | NUR ---
PT TO ROOM VIA EMS
--- NOTE | 2020-03-14 16:45 | NUR ---
16 HUNGARIAN AYALA CATH INSERTED USING STERILE TECHNIQUE, 800 ML YELLOW URINE OBTAINED. PT TOLERTAED WITHOUT DIFFICULTY.
[2020-03-14 16:46] LABS: HEMATOCRIT 37.3 % (39.0-50.0); HEMOGLOBIN 12.2 g/dl (14.0-18.0); IMMATURE GRANULOCYTES 0.4 % (0.0-5.0); MEAN CELL VOLUME 94.2 fL CALC (80.0-100.0); MEAN CORPUSCULAR HGB 30.8 pG CALC (26.0-32.0); MEAN CORPUSCULAR HGB CONC 32.7 g/dL CAL (32.0-36.0); NEUT# 7.47 thou/uL (1.82-7.42); RED BLOOD COUNT 3.96 mill/uL (4.70-6.10); RED CELL DISTRI WIDTH 12.4 % (11.5-15.5)
[2020-03-14 16:59] LABS: ACT PARTIAL THROMBO TIME 34.5 SECONDS (20.0-32.5)
[2020-03-14 17:02] LABS: ALBUMIN 3.7 g/dL (3.2-5.0); ALKALINE PHOSPHATASE 58 u/l (38-126); AMYLASE 112 u/l (30-110); ANION GAP 15 (6-22 (CALC)); CARBON DIOXIDE 28 mmol/l (22-30); CHLORIDE 93 mmol/l (95-108); ETHYL ALCOHOL 0 mg/dl (0-30); LIPASE 250 u/l (23-300); MAGNESIUM 1.8 mg/dL (1.6-2.3); POTASSIUM 4.3 mmol/l (3.5-5.1); SGOT/AST 21 u/l (19-48); SODIUM 132 mmol/l (137-146); TOTAL PROTEIN 6.8 g/dL (6.3-8.2)
[2020-03-14 17:03] LABS: INTERNATIONAL NORMALIZED RATIO 3.6 RATIO (0.7-1.3)
[2020-03-14 17:06] LABS: BILIRUBIN, TOTAL 0.2 mg/dL (0.0-1.4); BUN 87 mg/dL (8-23); BUN/CREATININE RATIO 24 (12-20 (CALC)); CREATININE 3.6 mg/dL (0.7-1.3); GFR 16 ML/MIN (>=60 (CALC)); GFR FOR AFR.AMER. 20 ML/MIN (>=60 (CALC))
--- NOTE | 2020-03-14 17:10 | NUR ---
NEOSYNEPHRINE STARTED AT THIS TIME PER STANDING ORDER; PT B/P 83/47; PT IN [place] POSITION; TOLERATING WELL AND IV BOLUS INFUSING; MONITORING DEVICES IN PLACE; WILL CONTINUE TO MONITOR
--- NOTE | 2020-03-14 17:25 | NUR ---
ULTRASOUND AT BEDSIDE.
[2020-03-14] MEDS ORDERED: GLIPIZIDE5 MG PO (17:37)
[2020-03-14] MEDS ORDERED: ASPIRIN81 MG PO (17:37)
[2020-03-14] MEDS ORDERED: XARELTO10 MG PO (17:37)
[2020-03-14] MEDS ORDERED: LISINOPRIL10 MG PO (17:38)
[2020-03-14] MEDS ORDERED: METFORMIN500 M2 PO (17:38)
[2020-03-14] MEDS ORDERED: ONGLYZA5 MG PO (17:39)
[2020-03-14] MEDS ORDERED: TRESIBA100 UNIT/M SC (17:39)
[2020-03-14] MEDS ORDERED: METOLAZONE2.5 MG PO (17:41)
[2020-03-14 17:49] LABS: URINE BILIRUBIN - DIPSTICK NEGATIVE (NEGATIVE); URINE BLOOD DIPSTICK NEGATIVE (NEGATIVE); URINE COLOR YELLOW; URINE GLUCOSE - DIPSTICK NEGATIVE (NEGATIVE); URINE KETONE NEGATIVE (NEGATIVE); URINE LEUK ESTERASE NEGATIVE (NEGATIVE); URINE NITRITE - DIPSTICK NEGATIVE (Negative); URINE PROTEIN - DIPSTICK NEGATIVE (NEG-TRACE); URINE UROBILINOGEN - DIPSTICK 0.2 E.U./dL (0.2)
--- NOTE | 2020-03-14 18:04 | NUR ---
MD AT BEDSIDE TO DISCUSS RESULTS AND POC.
--- NOTE | 2020-03-14 18:23 | NUR ---
COVID SWAB OBTAINED, ISOLATION PRECAUTIONS INITIATED.
--- NOTE | 2020-03-14 19:10 | NUR ---
NURSE TO NURSE REPORT CALLED TO SERVANDO FRANCO.
--- NOTE | 2020-03-14 19:25 | NUR ---
TO RADIOLOGY VIA STRETCHER MONITORS ATTACHED.
--- NOTE | 2020-03-14 19:40 | NUR ---
TO ICU FROM RADIOLOGY VIA STRETCHER.
--- NOTE | 2020-03-14 19:50 | NUR ---
PT ARRIVED TO THE FLOOR VIA STRETCHER ACCOMPANIED BY ER STAFF X2 , PT TRANSFERED FROM STRETCHER TO BED USING A SLIDE BOARD. PT ALERT AND ORIENED WITH SOME FORGETFULNESS. RESPIRATIONS ARE EVEN AND UNLABORED ON O2 @ 2L VIA NC, EXERTIONAL SOB NOTED AT TIMES. VS OBTAINED AND ASSESSMENT COMPLETED. PT CLEANED UP, SMEAR OF STOOL ON HIS BUTTOCKS AND SHEET, DIRTY LINENS REPLACED, PT PULLED UP IN BED. AYALA DRAINING TO GRAVITY. #20 LAC PATENT AND HEALTHY, #20 RFA PATENT AND HEALTHY. PT DENIES ANY PAIN OR DISCOMFORT AT THIS TIME. PT ORIENTED TO ROOM AND CALL SANCHEZ. SAFETY PRECAUTIONS IN PLACE. WILL CONTINUE TO MONITOR.
--- NOTE | 2020-03-14 21:20 | NUR ---
PT RESTING IN BED ALERT AND ORIENTED, WATCHING TV. ACCUCHECK 101. PT PROVIDED WITH A FROZEN DINNER AND GINGERALE PER REQUEST. PT DENIES ANY PAIN OR DISCOMFORT.
--- NOTE | 2020-03-14 21:50 | NUR ---
PT FINISHED EATING, SPILLED FOOD ON SHEETS, SOILED LINENS REMOVED, PT PROVIDED WITH A WARM BALKET PER REQUEST. PT AFEBRILE. PT BOOSTED UP AND REPOSITIONED. #20 RFA FREE FROM INFILTATION.
--- NOTE | 2020-03-14 23:35 | NUR ---
ASSISTED PT WITH PLUGGING IN CELL PHONE AND CALLING HIS .
[2020-03-15] VITALS (46 sets, daily range): BP systolic 88–132; BP diastolic 49–70
--- NOTE | 2020-03-15 00:04 | NUR ---
PT GETTING READY FOR BED, PT PROVIDED WITH ICE WATER PER REQUEST. #20 RFA, APPEARS HEALTHY NO SIGNS OF INFILTRATION.
--- NOTE | 2020-03-15 02:47 | NUR ---
PT RESTING IN BED, APPEARS TO BE SLEEPING. RESPIRATIONS EVEN AND UNLABORED ON O2 @ 2L VIA NC. #20 RFA INFUSING, APPEARS TO BE HEALTHY. WILL CONTINUE TO MONITOR.
--- NOTE | 2020-03-15 04:00 | NUR ---
PT RESTING IN BED FREE OF DISTRESS
--- NOTE | 2020-03-15 05:40 | NUR ---
PT RESTING IN BED WITH EYES CLOSED, RESPIRATIONS EVEN AND UNLABORED ON O2 @ 2 L VIA NC. #20 RFA APPEARS HEALTHY AND FREE FROM INFILTRATES.
--- NOTE | 2020-03-15 07:15 | NUR ---
pt awake in bed; no apparent distress noted; assessment completed at this time; pt alert and oriented; pt does appear to have intermittent episodes of confusion; pt complaints of sore throat, burning feet and generalized pain; prev medicated; no n/v noted; resp even and unlabored; lungs clear; skin color wnl; o2 per nc; hr reg; strong pulses; trace bilat le edema; sr/pac on monitor; abd soft/ distended with bs present; no bm noted per securities underwriter; [place] to gravity draining clear yellow urine; cath strap intact; #20 patent to rfa with mil synephrine infusing at 0.5mcg/kg/min; #20 ems site saline locked to lac; no redness or edema noted at site; pt able to reposition self; plan of care/ am meds explained; call light within reach; will continue to monitor
--- NOTE | 2020-03-15 08:05 | NUR ---
pt resting in bed eating breakfast; no apparent distress noted; o2 per nc; sr on monitor; iv intact and patent; mil-synephrine infusing at 0.5mcg/kg/min; no redness or edema noted at site; call light within reach; will continue to monitor
--- NOTE | 2020-03-15 09:08 | NUR ---
Dr Omalley and GREYSON Escudero present at bedside to assess pt and discuss plan of care;
--- NOTE | 2020-03-15 10:08 | NUR ---
awake in bed conversing on cell phone with spouse; no apparent distress noted; plan of care explained; packing house laborer at bedside; sr on monitor; [place] to gravity; call light within reach; will continue to monitor
[2020-03-15 10:25] LABS: HEMATOCRIT 35.9 % (39.0-50.0); HEMOGLOBIN 12.2 g/dl (14.0-18.0); IMMATURE GRANULOCYTES 0.7 % (0.0-5.0); MEAN CELL VOLUME 91.8 fL CALC (80.0-100.0); MEAN CORPUSCULAR HGB 31.2 pG CALC (26.0-32.0); NEUT# 9.01 thou/uL (1.82-7.42); RED BLOOD COUNT 3.91 mill/uL (4.70-6.10); RED CELL DISTRI WIDTH 12.3 % (11.5-15.5)
--- NOTE | 2020-03-15 10:35 | NUR ---
IV SITE TO LAC REMOVED WITH CATHETER INTACT DUE TO EXPIRATION AND PT REQUEST;NEW #20G STARTED TO LEFT HAND ON 1ST ATTEMPT BY THIS WRITTER,PT TOLERATED WELL;WILL CONTINUE TO MONITOR
[2020-03-15 10:38] LABS: ALBUMIN 3.2 g/dL (3.2-5.0); BILIRUBIN, TOTAL 0.2 mg/dL (0.0-1.4); TOTAL PROTEIN 5.9 g/dL (6.3-8.2)
[2020-03-15 10:39] LABS: CREATININE 2.3 mg/dL (0.7-1.3); POTASSIUM 5.7 mmol/l (3.5-5.1)
--- NOTE | 2020-03-15 12:00 | NUR ---
awake in bed; no apparent distress noted; pt offers no complaints; iv's intact and patent; heparin gtt at 1000 units/hr to lh; mil synephrine infusing at 0.3 mcg/kg/min to rfa; no s/s of infiltraion noted; sr on monitor; [place] to gravity; o2 per nc; call light within reach; will continue to monitor
--- NOTE | 2020-03-15 14:00 | NUR ---
awake in bed; no apparent distress noted; pt offers no complaints; iv intact and patent; weaning mil synephrine; heparin gtt infusing; iv's free from redness or edema; sr on monitor; [place] to gravity; call light within reach; will continue to monitor
--- NOTE | 2020-03-15 15:55 | NUR ---
awake in bed reading the bible; offers no complaints; no apparent distress noted; o2 per nc; sr on monitor; [place] to gravity; iv's intact; po fluids provided; call light within reach; will continue to monitor
--- NOTE | 2020-03-15 17:55 | NUR ---
awake in bed; no apparent distress noted; pt offers no complaints; iv intact and patent; heparin gtt placed on hold at this time for 60 min for ptt of 106.2; sr on monitor; o2 per nc; call light within reach;
--- NOTE | 2020-03-15 20:13 | NUR ---
ASSESSMENT COMPLETED. NO DISTRESS NOTED; RESP. EVEN AND UNLABORED. CLIENT SERVICE EXECUTIVE IN PLACE AND READING SR. B/P 102/53; DENIES NEEDS/PAIN. PT. ABLE TO PULL HIMSELF UP IN BED WITHOUT DIFFICULTY. O2 INFUSING PER NC @2LITERS/MIN. HEPARIN GTT INFUSTING @12MLS/HR(600UNITS/HR) ALONG WITH NS @20MLS/HR. NON-SKID SOCKS APPLIED. AYALA CATHETER INTACT AND DRAINING @GRAVITY LEVEL. ENCOURAGED TO CALL FOR ANY NEEDS. CALL LIGHT IS N REACH. WILL CONTINUE TO MONITOR.
--- NOTE | 2020-03-15 22:05 | NUR ---
PT. RESTING IN BED WITH NO DISTRESS NOTED; DENIES NEEDS AT THIS TIME. VSS. B/P 103/56; WILL CONTINUE TO MONITOR.
--- NOTE | 2020-03-15 23:36 | NUR ---
PT. RESTING IN BED AND C/O GOMEZ AN GENERALIED PAIN; MEDICATED WITH ORDERED PRN LORTAB; WILL REASSSESS. DENIES FURTHER NEEDS. CALL LIGHT IS IN REACH. PO FLUIDS OFFERED.
[2020-03-16] VITALS (21 sets, daily range): BP systolic 98–136; BP diastolic 50–62
--- NOTE | 2020-03-16 03:15 | NUR ---
RESTING IN BED WITH NO DISTRESS NOTED;DENIES NEEDS. AYALA CATHETER BAG EMPTIED, ENCOURAGED TO CALL FOR ANY NEEDS. B/P REMAINS WNL.
--- NOTE | 2020-03-16 05:59 | NUR ---
PT. C/O BILATERAL FEET PAIN AND MEDICATED WITH ORDERED PRN LORTAB; WILL REASSESS. DENIES FURTHER NEEDS. CALL LIGHT IS IN REACH. WILL CONTINUE TO MONITOR.
[2020-03-16 07:32] LABS: HEMATOCRIT 33.8 % (39.0-50.0); HEMOGLOBIN 11.1 g/dl (14.0-18.0); MEAN CELL VOLUME 94.2 fL CALC (80.0-100.0); MEAN CORPUSCULAR HGB 30.9 pG CALC (26.0-32.0); MEAN CORPUSCULAR HGB CONC 32.8 g/dL CAL (32.0-36.0); RED BLOOD COUNT 3.59 mill/uL (4.70-6.10); RED CELL DISTRI WIDTH 12.4 % (11.5-15.5)
--- NOTE | 2020-03-16 07:38 | NUR ---
PT note Patient is screened for PT intervention and it is felt he would benefit when stable for monitored exercise and gait as well as functional assessment
--- NOTE | 2020-03-16 08:00 | NUR ---
PT RESTING IN BED, NO SIGNS OF DISTRESS, VITALS STABLE ON MONITOR. ITEMS AND CALL LIGHT WITHIN REACH. BED IN LOW POSITION. EATING BREAKFAST AT THIS TIME.
[2020-03-16 08:15] LABS: BILIRUBIN, TOTAL 0.2 mg/dL (0.0-1.4); CREATININE 2.1 mg/dL (0.7-1.3); POTASSIUM 4.6 mmol/l (3.5-5.1); TOTAL PROTEIN 5.4 g/dL (6.3-8.2)
[2020-03-16] MEDS ORDERED: ROPINIROLE0.5 MG PO (08:21)
[2020-03-16] MEDS ORDERED: TIZANIDINE HCL4 MG PO (08:21)
[2020-03-16] MEDS ORDERED: WARFARIN7.5 MG PO (08:22)
[2020-03-16] MEDS ORDERED: TRESIBA FL100 UNIT/M SC (08:22)
[2020-03-16 08:47] LABS: INTERNATIONAL NORMALIZED RATIO 5.7 RATIO (0.7-1.3); PROTHROMBIN TIME 52.4 SECONDS (9.0-12.5)
--- NOTE | 2020-03-16 10:00 | NUR ---
PT SITTING IN BEDSIDE CHAIR WATHCING TV. PLEASANT, NO ACUTE DISTRESS NOTED. VITALS REMAIN STABLE. IV FLUIDS INFUSING WITHOUT COMPLICATIONS.
--- NOTE | 2020-03-16 12:00 | NUR ---
PT TRANSFERRED BACK TO BED PER PT REQUEST. PT ABLE TO TRANSFER WITH ONE PERSON ASSIST. LUNCH PROVIDED AT THIS TIME. CALL LIGHT WITHIN REACH, BED IN LOW POSITION. DENIES ANY PAIN OR CONCERNS AT THIS TIME.
--- NOTE | 2020-03-16 14:00 | NUR ---
PT RESTING, REQUESTED WARM BLANKET. PROVIDED. VITALS REMAIN STABLE. IV INFUSING NS KVO. CALL LIGHT WITHIN REACH. NO OTHER CONCERNS AT THIS TIME.
--- NOTE | 2020-03-16 16:00 | NUR ---
PT SLEEPING IN BED. BED IN LOW POSITION. NO SIGNS OF DISTRESS. WILL CONTINUE TO MONITOR.
--- NOTE | 2020-03-16 18:00 | NUR ---
PT SITTING UPRIGHT IN BED FOR DINNER. NO COMPLAINTS AT THIS TIME. CALL LIGHT AND PERSONAL ITEMS WITHIN REACH.
--- NOTE | 2020-03-16 20:45 | NUR ---
PT IS AWAKE, ALERT AND ORIENTED X4. PT ASSESSED. AFEBRILE. SR/ST ON TELE. BS 244 MG/DL. O2 SAT 96%, DOES BECOME SLIGHTLY SOB WITH EXERTION. ON 2.5 L/MIN NC. AYALA CATHETER INTACT, URINE YELLOW/CLEAR, PT DENIES BURNIN AT CATHETER SITE AT THIS TIME. DOES COMPLAIN OF FEET PAIN, WILL PROVIDE PAIN MED. IV X2 INTACT. NS AT 20 ML/HR. BP WNL. CALL LIGHT WITHIN REACH.
--- NOTE | 2020-03-16 21:00 | NUR ---
PATIENT MEDICATED WITH BEDTIME MEDS AND PRN PO PAIN MED. PT ABLE TO SWALLOW WITHOUT DIFFICULTY. NO OTHER NEEDS OR COMPLAINTS AT THIS TIME. CALL LIGHT WITHIN REACH.
--- NOTE | 2020-03-16 22:05 | NUR ---
ELECTRODES FIXED ON PT'S CHEST. PT LAYS SUPINE AND AWAKENS EASILY WHEN SPOKEN TO. CALL LIGHT WITHIN REACH.
[2020-03-17] VITALS (11 sets, daily range): BP systolic 98–120; BP diastolic 48–72
--- NOTE | 2020-03-17 03:04 | NUR ---
PT PRODUCTION ENGINEER LIGHT, REPORTS HIS CARDIAC LEADS CAME OFF OF HIS CHEST. LEADS READJUSTED. PT REQUESTS A SANDWICH AND ICED WATER, PROVIDED. 950 EMPTIED OUT OF AYALA. PT IN NO ACUTE DISTRESS. NO COMPLAINTS. CALL LIGHT WITHIN REACH.
[2020-03-17 05:45] LABS: INTERNATIONAL NORMALIZED RATIO 2.8 RATIO (0.7-1.3); PROTHROMBIN TIME 26.3 SECONDS (9.0-12.5)
--- NOTE | 2020-03-17 05:50 | NUR ---
PATIENT HAD O2 OFF. O2 SAT DID READ HIGH 80'S TO 90%, ON 2.5 L/MIN NC, HE REPORTS HE TOOK HIS NC OFF DUE TO NOSE BECAME DRY, HUMIDIFIER APPLIED. NO OTHER COMPLAINTS OR NEEDS. CALL LIGHT WITHIN REACH.
[2020-03-17 05:55] LABS: CREATININE 1.6 mg/dL (0.7-1.3); POTASSIUM 4.9 mmol/l (3.5-5.1)
--- NOTE | 2020-03-17 06:45 | NUR ---
RECIEVED REPORT FORM JOAN JEFF. ASSUMED PT CARE.
--- NOTE | 2020-03-17 08:00 | NUR ---
PT A&0X4, ABLE TO MAKE NEEDS KNOWN. SR ON TELEMETRY, HR 66. PT DENIES CP OR DISTRESS. PT REMAINS SOB WITH EXERTION, LS CLEAR THROUGHOUT, SA02@90% ON 2LPM/NC. ABDOMEN DISTENDED, NON-TENDER, BSX4 ACTIVE. AYALA REMAIN PATENT, DRAINING TO BSD VIA GRAVITY. CLEAR YELLOW URINE. NS INFUSING @RFA, NO S/S OF INFILTRATION NOTED AT THIS TIME. CALL LIGHT IN REACH. WILL MONITOR.
--- NOTE | 2020-03-17 08:37 | NUR ---
DR. KIRKPATRICK AT BEDSIDE FOR ASSESSMENT AND TO DISCUSS PLAN OF CARE. NEW ORDERS RECIEVED.
--- NOTE | 2020-03-17 09:32 | NUR ---
PT CALLED WITH CODE, UPDATE GIVEN. PT REQUESTING THE AYALA REMAINS TO HAVE ACCURATE I&O'S UPON DISCHARGE. PT COVID RESULTS BACK, NEGATIVE. PT UPDATED.
--- NOTE | 2020-03-17 10:30 | NUR ---
PT GIVEN COMPLETE BED BATH WITH AYALA CARE. TOLERATED WELL.
--- NOTE | 2020-03-17 10:56 | NUR ---
REPORT CALLED TO RGOELIO MCCLENDON.
--- NOTE | 2020-03-17 11:43 | NUR ---
PT ARRIVED VIA WC WITH STAFF FROM ICU WITH ALL BELONGINGS. IV SITE IS FREE FROM REDNESS OR EDEMA.
--- NOTE | 2020-03-17 12:15 | NUR ---
PT HAS BEEN RELAXING IN BED WITH NO DISTRESS NOTED. FAMILY IN THE ROOM.
--- NOTE | 2020-03-17 15:51 | NUR ---
EXPLAINED TO PT RE: PEOPLE STAYING THE NIGHT. UNABLE TO DUE TO COVID., VERBALIZED UNDERSTANDING.
--- NOTE | 2020-03-17 16:15 | NUR ---
PT HAS BEEN RELAXING IN BED WITH MO DISTRESS NOTED. IV SITE IS FREE FROM REDNESS OR EDEMA.
--- NOTE | 2020-03-17 18:52 | NUR ---
REPORT RECEIVED FROM ROGELIO MCCLENDON. PT RESTING IN BED. NO S/S OF DISTRESS AT THIS TIME. WILL CONTINUE TO MONITOR.
--- NOTE | 2020-03-17 20:50 | NUR ---
PT RESTING IN BED, ALERT AND ORIENTED. RESPIRATIONS ARE EVEN AND UNLABORED ON O2 @ 2L VIA NC. LUNGS SOUND CLEAR. PEDAL PULSES ARE WEAK, 1+ EDEMA NOTED TO LOWER EXTREMITIES. PT REPORT HAVING MILD PAIN IN HIS FEET, TO BE MEDICATED PER EMAR ORDERS. CALL SANCHEZ WITHIN REACH WILL CONTINUE TO MONITOR.
--- NOTE | 2020-03-18 00:10 | NUR ---
PT RESTING IN BED, FREE FROM DISTRESS AT THIS TIME.
[2020-03-18 00:37] VITALS: BP 115/70
--- NOTE | 2020-03-18 04:10 | NUR ---
PT RESTING IN BED, NO S/S OF DISTRESS AT THIS TIME. SAFETY PRECAUTIONS IN PLACE. WILL CONTINUE TO MONITOR.
[2020-03-18 04:40] VITALS: BP 101/56
[2020-03-18 06:03] LABS: INTERNATIONAL NORMALIZED RATIO 1.8 RATIO (0.7-1.3); PROTHROMBIN TIME 17.1 SECONDS (9.0-12.5)
[2020-03-18 07:40] VITALS: BP 128/65
--- NOTE | 2020-03-18 07:40 | NUR ---
ASSESSMENT IS COMPLETED;IV SITE IS FREE FROM REDNESS OR EDEMA.HR IS REG,PULSES ARE STRONG X4, ABD IS SOFT WITH ACTIVE BS, BREATH SOUNDS ARE CLEAR,BILATERALLY, +1 EDEMA NOTED ON BILAT FEET. TELE MONITOR IN PLACE. AYALA DRAINING YELLOW URINE.
--- NOTE | 2020-03-18 08:45 | NUR ---
TOOK PT OFF O2 TO SEE HOW HE DOES.
[2020-03-18] MEDS ORDERED: MIDODRINE HCL5 MG PO (09:23)
--- NOTE | 2020-03-18 10:33 | NUR ---
CHECKED O2 SATS ARE 92% ON RA WHILE ASLEEP/.
[2020-03-18 10:58] VITALS: BP 124/83
--- NOTE | 2020-03-18 12:00 | NUR ---
PT IS RELAXING IN BED FAMILY INQUIRED ABOUT PLANS FOR DISCHARGE. CONTINUE TO OBSERVE AND MONITOR.
--- NOTE | 2020-03-18 12:30 | NUR ---
EXPLAINED TO PT AND SPOUSE RE: DISCHARGE PLANS. PT WILL GO HOME WITH AYALA NEEDING TO FOLLOW UP WITH UROLOGIST, ALSO CHECKING THE O2 TO SEE IF PT QUALIFIES FOR O2 @ HOME. IV SITES ARE FREE FROM REDNESS OR EDEMA. CONTINUE TO NIKKY.
--- NOTE | 2020-03-18 13:18 | NUR ---
REPORT RECEIVED FROM ROGELIO MCCLENDON.
--- NOTE | 2020-03-18 13:47 | NUR ---
PT AT BEDSIDE. OXYGEN WALK TEST PERFORMED. AT REST PT IS 95% ON ROOM AIR. PT ONLY ABLE TO STAND WITH DIFFICULTY WITH WALKER; UNABLE TO WALK OR STEP IN PLACE; DURING EXERTION SPO2 DECREASED TO 93%. AFTER SITTING AND AGAIN AT REST SPO2 INCREASED TO 97%.
--- NOTE | 2020-03-18 15:00 | NUR ---
AT BEDSIDE ANXIOUSLY AWAITING PATIENTS DISCHARGE; UPDATED THAT WE ARE WAITING FOR CONFIRMED HOME HEALTH.
[2020-03-18 15:23] VITALS: BP 108/59
--- NOTE | 2020-03-18 15:25 | NUR ---
PT USED CALL LIGHT TO REQUEST A LORTAB FOR 7/10 GENERALIZED PAIN; PROVIDED AT THIS TIME. PT AND UPDATED THAT HE WILL RECEIVE [facility]. PERIPHERAL IV SITES TO RFA AND LW D/C'D WITH CATHETERS INTACT; PT TOLERATED WELL.
--- NOTE | 2020-03-18 15:40 | NUR ---
AYALA BAG REPLACED WITH LEG BAG; AYALA DRAINING CLEAR YELLOW URINE IN ADEQUATE AMOUNTS.
--- NOTE | 2020-03-18 15:49 | NUR ---
Discharge instructions given. Patient verbalizes understanding of same. Discharged in stable condition via Wheelchair to Home with spouse. All belongings sent with pt.
--- NOTE | 2020-03-18 15:53 | NUR ---
PT WAS SEEN RESTING SUPINE IN BED, SPO2 ON RM AIR WAS 94-95%. HE DENIES DYSPNEA OR PREVIOUS EXPERIENCE OF DYSPNEA. SUPINE TO SIT REQUIRED MOD A FROM THERAPIST TO LIFT PT'S LE OFF THE BED. PT SCOOTED FORWARD ON EDGE OF BED WITH THERAPIST'S VCS. PT WAS GIVEN MOD A OF 2 TO COMPLETE STS WITH VCS ON HAND PLACEMENT. HIS STANDING BALANCE WITH RW WAS GOOD. HIS STANDING TOLERANCE HOWEVER WAS LIMITED TO ~30 SECONDS. PT REFUSED TO PERFORM MARCHING IN PLACE OR TO AMBULATE DUE TO FEELING OF INSTABILITY. HE THEN REQUESTED TO SIT IN BED. SPO2 ON ROOM AIR REMAINED BETWEEN 94-95% WITH NO SOB. AMPAC: 9 POINTS
== END 2020-03-18 15:45 | disposition home health service (06) | DRG 682 ==
LOC: ED 16:04 → ED-I 17:40 → ED 18:24 → ICU 18:25 → MS2 03-17 11:40
PROVIDERS: Internal Medicine; Nurse Practitioner Family; ADMIT Internal Medicine; ATTEND Internal Medicine
PROC: 0T9B70Z Drainage of Bladder with Drainage Device, Via Natural or Artificial Opening (ICD-10-PCS; principal; 2020-03-14)
DX: N17.9 Acute kidney failure, unspecified (principal); R57.0 Cardiogenic shock; I13.0 Hypertensive heart and chronic kidney disease with heart failure and stage 1 through stage 4 chronic kidney disease, or unspecified chronic kidney disease; I48.92 Unspecified atrial flutter; R33.9 Retention of urine, unspecified; I95.9 Hypotension, unspecified; I50.9 Heart failure, unspecified; I48.0 Paroxysmal atrial fibrillation; E11.51 Type 2 diabetes mellitus with diabetic peripheral angiopathy without gangrene; E78.5 Hyperlipidemia, unspecified; J44.9 Chronic obstructive pulmonary disease, unspecified; I25.10 Atherosclerotic heart disease of native coronary artery without angina pectoris; K59.00 Constipation, unspecified; E11.22 Type 2 diabetes mellitus with diabetic chronic kidney disease; N18.3 Chronic kidney disease, stage 3 (moderate); Z85.46 Personal history of malignant neoplasm of prostate; G47.33 Obstructive sleep apnea (adult) (pediatric); Z92.21 Personal history of antineoplastic chemotherapy; Z95.5 Presence of coronary angioplasty implant and graft; Z79.4 Long term (current) use of insulin; Z98.1 Arthrodesis status; Z87.891 Personal history of nicotine dependence; Z79.01 Long term (current) use of anticoagulants; Z20.828 Contact with and (suspected) exposure to other viral communicable diseases
CPT/HCPCS: J1644

== ENCOUNTER 2020-03-29 12:05 | Emergency (ER) | payer MEDICARE ==
[~2020-03-29] VITALS: Ht 185.4 cm; Wt 87.0 kg
[~2020-03-29 12:05] MED LIST changes: +GLIPIZIDE5 MG PO; +METFORMIN500 M2 PO; +METOLAZONE2.5 MG PO; +MIDODRINE HCL5 MG PO; +ONGLYZA5 MG PO; +ROPINIROLE0.5 MG PO; +TIZANIDINE HCL4 MG PO; +TRESIBA FL100 UNIT/M SC; +TRESIBA100 UNIT/M SC
[2020-03-29 12:43] LABS: HEMATOCRIT 34.5 % (39.0-50.0); HEMOGLOBIN 11.6 g/dl (14.0-18.0); IMMATURE GRANULOCYTES 0.3 % (0.0-5.0); MEAN CORPUSCULAR HGB 31.3 pG CALC (26.0-32.0); MEAN CORPUSCULAR HGB CONC 33.6 g/dL CAL (32.0-36.0); NEUT# 7.16 thou/uL (1.82-7.42); RED BLOOD COUNT 3.71 mill/uL (4.70-6.10); RED CELL DISTRI WIDTH 12.7 % (11.5-15.5)
[2020-03-29 12:44] LABS: URINE BILIRUBIN - DIPSTICK NEGATIVE (NEGATIVE); URINE BLOOD DIPSTICK LARGE (NEGATIVE); URINE COLOR YELLOW; URINE GLUCOSE - DIPSTICK NEGATIVE (NEGATIVE); URINE KETONE NEGATIVE (NEGATIVE); URINE LEUK ESTERASE TRACE (NEGATIVE); URINE NITRITE - DIPSTICK POSITIVE (Negative); URINE PROTEIN - DIPSTICK TRACE mg/dL (NEG-TRACE); URINE UROBILINOGEN - DIPSTICK 0.2 E.U./dL (0.2)
[2020-03-29 12:45] LABS: URINE BACTERIA MANY hpf; URINE EPITHELIAL CELLS MODERATE EPI/hpf (0-FEW); URINE RBC 25-50 RBC/hpf (0-5)
[2020-03-29 13:00] LABS: ALBUMIN 3.5 g/dL (3.2-5.0); ALKALINE PHOSPHATASE 67 u/l (38-126); BUN 23 mg/dL (8-23); BUN/CREATININE RATIO 17 (12-20 (CALC)); CARBON DIOXIDE 29 mmol/l (22-30); CHLORIDE 96 mmol/l (95-108); CREATININE 1.4 mg/dL (0.7-1.3); GFR 49 ML/MIN (>=60 (CALC)); GFR FOR AFR.AMER. 59 ML/MIN (>=60 (CALC)); POTASSIUM 4.2 mmol/l (3.5-5.1); SGOT/AST 17 u/l (19-48)
[2020-03-29 13:07] LABS: ANION GAP 7 (6-22 (CALC)); BILIRUBIN, TOTAL 0.3 mg/dL (0.0-1.4); SODIUM 128 mmol/l (137-146); TOTAL PROTEIN 6.7 g/dL (6.3-8.2)
[2020-03-29] MEDS ORDERED: KEFLEX500 M1 PO (14:09)
[2020-03-29 15:00] VITALS: BP 140/78
--- NOTE | 2020-03-31 07:59 | NUR ---
PRELIM BLOOD CX RESULTS SHOW GRAM POSITIVE COCCI IN 1 BOTTLE. RESULTS CALLED TO DR SHRESTHA WHO REQUESTED WE F/U WITH PT. CALLED PT, SPOKE WITH . REPORTS PT IS DOING "ABOUT THE SAME". REPORTS HE FELL 03/29 GETTING UP FROM TOILET, DID NOT HIT HEAD OR LOSE CONSCIOUSNESS. SHE SAYS PT IS ON A BLOOD THINNER AND SHES A NURSE SO SHE KEEPS A CLOSE EYE ON HIM, FALLS ARE COMMON DUE TO PT WEAKNESS ESPECIALLY IN LEGS. REPORTS PT HAS HAD NO FEVER OR CHILLS SINCE D/C AND IS TAKING ABX PRESCRIBED. ADVISED TO MAKE SURE PT COMPLETES FULL COURSE OF ABX FOR UTI AND RETURN IF WORSENING SYMPTOMS. UNDERSTANDS. WILL F/U WITH FINAL RESULTS
--- NOTE | 2020-04-02 10:31 | NUR ---
Final blood culture indicates Staphylococcus Epidermidis in one of the two sets, reported to Dr. San. No change in therapy warranted at this time.
== END 2020-03-29 15:57 | disposition home or self-care (01) ==
LOC: ED 12:05
DX: R33.9 Retention of urine, unspecified (principal); T83.9XXA Unspecified complication of genitourinary prosthetic device, implant and graft, initial encounter; I11.0 Hypertensive heart disease with heart failure; I50.9 Heart failure, unspecified; E11.51 Type 2 diabetes mellitus with diabetic peripheral angiopathy without gangrene; I48.91 Unspecified atrial fibrillation; M79.89 Other specified soft tissue disorders; Y84.6 Urinary catheterization as the cause of abnormal reaction of the patient, or of later complication, without mention of misadventure at the time of the procedure; Z85.46 Personal history of malignant neoplasm of prostate; Z79.4 Long term (current) use of insulin; Z96.0 Presence of urogenital implants